=== PATIENT | female | born 1990 | race Caucasian/White ===

== ENCOUNTER 2018-12-15 13:50 | Outpatient (CLI) | payer OTHER ==
[2018-12-15 14:49] VITALS: BP 111/57; PULSE 80; RESP 16; TEMP 96
--- NOTE | 2018-12-15 18:31 | P.MSEPDOC ---
Presenting Problems - Arrival Data Date of Arrival on Unit: 12/15/18 Time of Arrival on Unit: 13:50 Mode of Transport: Wheelchair - Complaint Comment: constipation and presssure Medical History - Information : 4 Para: 1 Term: 1 : 0 Abortions: Spontaneous or Elective: 2 Number of Living Children: 1 - Gestational Age Gestational Age by YASSINE (wks/days): 26 Weeks and 2 Days - History Complications: Smoker Review of Systems - Review of Systems Constitutional: No problems Breast: No problems ENT: No problems Cardiovascular: No problems Respiratory: No problems Gastrointestinal: No problems Genitourinary: No problems Musculoskeletal: No problems Neurological: No problems Skin: No problems Vital Signs - Temperature Temperature: 96 F Temperature Source: Temporal Artery Scan - Pulse Right Brachial Pulse Rate: 80 Pulse Assessment Method: Automatic Cuff - Respirations Respiratory Rate: 16 Oxygen Delivery Method: Room Air - Blood Pressure Right Arm Blood Pressure: 111/57 Blood Pressure Mean: 75 Blood Pressure Source: Automatic Cuff Medical Screen Scoring (Pre) - Cervical Exam Dilation: 0 cm = 0 Membranes: Intact - Uterine Contractions Frequency: N/A Duration: N/A Intensity: N/A - Maternal Vital Signs Maternal Temperature: N/A Maternal Blood Pressure: N/A Signs of Preeclampsia: N/A Maternal Respirations: N/A - Maternal Trauma Maternal Trauma: N/A - Assessment - Baby A Baseline FHR: 130 Heart Rate - NICHD Category: Category I (Normal) = 0 NST: Reactive Position: N/A Station: N/A - Assessment - Baby B Baseline FHR: 130 Heart Rate - NICHD Category: Category I (Normal) = 0 NST: Reactive Position: N/A Station: N/A - Total Score - Baby A Total Score - Baby A: 0 - Total Score - Baby B Total Score - Baby B: 0 - Total Score - Baby C Total Score - Baby C: 0 - Level of Risk - Baby A Level of Risk - Baby A: Low (0-5) - Level of Risk - Baby B Level of Risk - Baby B: Low (0-5) - Level of Risk - Baby C Level of Risk - Baby C: Low (0-5) Physician Notification (Pre) - Physician Notified Physician Notified Date: 12/15/18 Physician Notified Time: 14:07 Physician/Practitioner Notifed:: Dr. Sullivan Spoke With: Dr. Sullivan New Order Received: Yes - Notification Comment Comment: Amnisure negative. Pt discharged to home Disposition - Disposition OB Disposition: Discharge to home Discharge Date: 12/15/18 Discharge Time: 15:16 I agree with the RN Medical Screening Exam: Yes Risk & Benefit of care provided described in d/c instruction: Yes Diagnosis: CONSTIPATION, UNSPECIFIED (This is a 28-year-old multiparous female who is approximately 26 weeks by stated EDC who has known twin gestation and care elsewhere. Patient resides in [place] and presented here with complaints of constipation. Emergency department Center labor and delivery to rule out labor. Patient is having no contractions, cervix is closed internal os, and fibronectin is negative. At this point there is no evidence of labor or compromise therefore she'll be discharged f [facility] up with her nutrition manager scheduled.)
== END 2018-12-15 15:17 | disposition home or self-care (01) ==
LOC: FBPOP 13:50
PROVIDERS: ATTEND Obstetrics & Gynecology
DX: O30.002 Twin pregnancy, unspecified number of placenta and unspecified number of amniotic sacs, second trimester (principal); O99.612 Diseases of the digestive system complicating pregnancy, second trimester; K59.00 Constipation, unspecified; Z3A.26 26 weeks gestation of pregnancy
CPT/HCPCS: 84112; 82731; G0463; 99213